=== PATIENT | male | born 1985 | race Hispanic/Latino ===

== ENCOUNTER 2017-07-09 20:16 | Emergency (ER) | payer SELFPAY ==
[~2017-07-09] VITALS: Ht 180.3 cm; Wt 65.8 kg
[2017-07-09 21:13] LABS: BASOPHILS # (AUTO) 0.1 10^3/uL (0.0-0.1); BASOPHILS % (AUTO) 1 % (0-10); EOSINOPHILS # (AUTO) 0.2 10^3/uL (0.0-0.3); EOSINOPHILS % (AUTO) 3 % (0-10); LYMPHOCYTES # (AUTO) 2.2 X 10^3 (1.0-4.0); LYMPHOCYTES % (AUTO) 26 % (12-44); MEAN CORPUSCULAR HEMOGLOBIN 31 PG (25-34); MEAN CORPUSCULAR HGB CONC 35 G/DL (32-36); MEAN CORPUSCULAR VOLUME 87 FL (80-99); MEAN PLATELET VOLUME 9.5 FL (7.4-10.4); MONOCYTES # (AUTO) 1.2 X 10^3 (0.0-1.0); MONOCYTES % (AUTO) 14 % (0-12); NEUTROPHILS # (AUTO) 5.1 X 10^3 (1.8-7.8); NEUTROPHILS % (AUTO) 58 % (42-75); PLATELET COUNT 248 10^3/uL (130-400); RED BLOOD COUNT 5.19 10^6/uL (4.35-5.85); RED CELL DISTRIBUTION WIDTH 12.5 % (10.0-14.5); WHITE BLOOD COUNT 8.8 10^3/uL (4.3-11.0)
[2017-07-09] MEDS ORDERED: KETOROLAC 30 MG/ML VIAL IVP ONE (21:15)
--- NOTE | 2017-07-09 21:29 | ED Abdominal Pain ---
General Chief Complaint: Abdominal/GI Problems Stated Complaint: ABD PAIN Nursing Triage Note: PT TO ED 5 W/ FAMILY FOR C/O ABD PAIN ET UNABLE TO URINATE. PT REPORTS PAIN TO UMBILICUS AND AROUND TO LT FLANK. NO OTHER C/O VOICED Sepsis Screen: No Definite Risk Source of Information: Patient Exam Limitations: No Limitations History of Present Illness Time Seen By Provider: 21:28 Initial Comments to ER with midline and left lower abdominal pain that began this morning. Sensation of needing to urinate but inability to do so. He's never had these symptoms before. No fevers or chills. Father has a history kidney stones. 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 Timing/Duration: 4-6 Hours Severity/Quality: Moderate Location: LLQ, Suprapubic Radiation: No Radiation Activities at Onset: None Allergies and Home Medications Allergies Coded Allergies: No Known Drug Allergies (Unverified , 07/09/17) Home Medications Ciprofloxacin HCl 500 Mg Tablet, 500 MG PO BID, #10 Prescribed by: YUKI PARKER on 07/09/172136 Hydrocodone/Acetaminophen 1 Each Tablet, 1 EACH PO Q4H PRN for PAIN-SEVERE, #30 Prescribed by: YUKI PARKER on 07/09/172136 Ibuprofen 800 Mg Tablet, 800 MG PO Q8H PRN for PAIN, #30 Prescribed by: YUKI PARKER on 07/09/172136 Tamsulosin HCl 0.4 Mg Cap, 0.4 MG PO DAILY, #14 Prescribed by: YUKI PARKER on 07/09/172136 Review of Systems Constitutional: see HPI EENTM: No Symptoms Reported Respiratory: No Symptoms Reported Cardiovascular: No Symptoms Reported Gastrointestinal: See HPI, Abdominal Pain, Denies Constipated, Denies Diarrhea , Denies Nausea Genitourinary: See HPI Musculoskeletal: no symptoms reported Skin: no symptoms reported Endocrine: No Symptoms Reported Past Rwphghr-Dyjtgo-Nudvlx Hx Patient Social History Alcohol Use: Denies Use Recreational Drug Use: No Smoking Status: Never a Smoker Recent Foreign Travel: No Contact w/Someone Who Travel: No Recent Infectious Disease Expo: No Recent Hopitalizations: No Physical Abuse: No Sexual Abuse: No Mistreated: No Fear: No Surgeries History of Surgeries: Yes (CHEST BX) Respiratory History of Respiratory Disorde: No Cardiovascular History of Cardiac Disorders: No Neurological History of Neurological Disord: No Genitourinary History of Genitourinary Disor: No Gastrointestinal History of Gastrointestinal Di: No Musculoskeletal History of Musculoskeletal Dis: No Endocrine History of Endocrine Disorders: No HEENT History of HEENT Disorders: No Cancer History of Cancer: No Psychosocial History of Psychiatric Problem: No Suicide Risk Score: 0 Integumentary History of Skin or Integumenta: No Blood Transfusions History of Blood Disorders: No Physical Exam Vital Signs VS - Last 72 Hours, by Label 07/09/17 20:47 Temp 98.7 Pulse 67 Resp 20 B/P (MAP) 130/95 Pulse Ox 99 O2 Delivery Room Air Capillary Refill : Less Than 3 Seconds General Appearance: WD/WN, no apparent distress HEENT: PERRL/EOMI, normal ENT inspection Neck: non-tender, full range of motion Respiratory: normal breath sounds, no respiratory distress, no accessory muscle use Gastrointestinal: normal bowel sounds, soft, tenderness (left-sided) Extremities: normal range of motion, non-tender Neurologic/Psychiatric: alert, normal mood/affect, oriented x 3 Skin: normal color, warm/dry Progress/Results/Core Measures Results/Orders Lab Results Laboratory Tests Test 07/09/17 20:59 07/09/17 21:31 Range/Units White Blood Count 8.8 4.3-11.0 10^3/uL Red Blood Count 5.19 4.35-5.85 10^6/uL Hemoglobin 15.9 13.3-17.7 G/DL Hematocrit 45 40-54 % Mean Corpuscular Volume 87 80-99 FL Mean Corpuscular Hemoglobin 31 25-34 PG Mean Corpuscular Hemoglobin Concent 35 32-36 G/DL Red Cell Distribution Width 12.5 10.0-14.5 % Platelet Count 248 130-400 10^3/uL Mean Platelet Volume 9.5 7.4-10.4 FL Neutrophils (%) (Auto) 58 42-75 % Lymphocytes (%) (Auto) 26 12-44 % Monocytes (%) (Auto) 14 H 0-12 % Eosinophils (%) (Auto) 3 0-10 % Basophils (%) (Auto) 1 0-10 % Neutrophils # (Auto) 5.1 1.8-7.8 X 10^3 Lymphocytes # (Auto) 2.2 1.0-4.0 X 10^3 Monocytes # (Auto) 1.2 H 0.0-1.0 X 10^3 Eosinophils # (Auto) 0.2 0.0-0.3 10^3/uL Basophils # (Auto) 0.1 0.0-0.1 10^3/uL Sodium Level 137 135-145 MMOL/L Potassium Level 4.0 3.6-5.0 MMOL/L Chloride Level 102 98-107 MMOL/L Carbon Dioxide Level 23 21-32 MMOL/L Anion Gap 12 5-14 MMOL/L Blood Urea Nitrogen 13 7-18 MG/DL Creatinine 1.26 0.60-1.30 MG/DL Estimat Glomerular Filtration Rate > 60 BUN/Creatinine Ratio 10 Glucose Level 117 H 70-105 MG/DL Calcium Level 9.8 8.5-10.1 MG/DL Total Bilirubin 0.6 0.1-1.0 MG/DL Aspartate Amino Transf (AST/SGOT) 110 H 5-34 U/L Alanine Aminotransferase (ALT/SGPT) 258 H 0-55 U/L Alkaline Phosphatase 96 40-136 U/L Total Protein 7.8 6.4-8.2 GM/DL Albumin 4.4 3.2-4.5 GM/DL Urine Color YELLOW Urine Clarity CLEAR Urine pH 7 5-9 Urine Specific [place] 1.015 L 1.016-1.022 Urine Protein 1+ H NEGATIVE Urine Glucose (UA) NEGATIVE NEGATIVE Urine Ketones NEGATIVE NEGATIVE Urine Nitrite NEGATIVE NEGATIVE Urine Bilirubin NEGATIVE NEGATIVE Urine Urobilinogen NORMAL NORMAL MG/DL Urine Leukocyte Esterase NEGATIVE NEGATIVE Urine RBC (Auto) 2+ H NEGATIVE Urine RBC 10-25 H /HPF Urine WBC NONE /HPF Urine Crystals NONE /LPF Urine Bacteria NONE /HPF Urine Casts NONE /LPF Urine Mucus NEGATIVE /LPF Urine Culture Indicated NO My Orders Orders - YUKI PARKER APRN Saline Lock/Iv-Start (07/09/17 21:07) Ct Abd/Pelvis Wo(Kidney Stone) (07/09/17 21:07) Ua Culture If Indicated (07/09/17 21:07) Cbc With Automated Diff (07/09/17 21:07) Comprehensive Metabolic Panel (07/09/17 21:07) Ketorolac Injection (Toradol Injection) (07/09/17 21:15) Rx-Hydrocodone/Apap 5-325 Mg (Rx-Vicodin (07/09/17 21:45) Medications Given in ED Current Medications Medications Dose Ordered Sig/Boo Route Start Time Stop Time Status Last Admin Dose Admin Ketorolac Tromethamine 30 mg ONCE ONCE IVP 07/09/17 21:15 07/09/17 21:16 DC 07/09/17 21:20 30 MG Vital Signs/I&O Vital Sign - Last 12Hours 07/09/17 20:47 Temp 98.7 Pulse 67 Resp 20 B/P (MAP) 130/95 Pulse Ox 99 O2 Delivery Room Air Blood Pressure Mean: 107 Diagnostic Imaging Diagonstic Imaging: CT Comments NAME: FERNANDO MILLER [facility] REC#: [id number] PT STATUS: REG ER : 1985 PHYSICIAN: YUKI PARKER APRN ADMIT DATE: 07/09/17/ER Draft Date of Exam:07/09/17 CT ABD/PELVIS WO(KIDNEY STONE) PROCEDURE: CT urinary tract, rule out kidney stone. TECHNIQUE: Multiple contiguous axial images were obtained through the abdomen and pelvis without the use of intravenous contrast. INDICATION: Unable to urinate, pain to the umbilicus and around to the left flank. CORRELATION STUDY: None. FINDINGS: LOWER THORAX: Calcified granuloma, anteriorly, in the right mid to lower lung. LIVER: 2.4 x 1.8 cm low-density mass in the left lobe of the liver most compatible with a cyst. Unenhanced liver otherwise unremarkable. GALLBLADDER: Slightly contracted, otherwise unremarkable. SPLEEN: Unremarkable. PANCREAS: Unremarkable. ADRENAL GLANDS: Unremarkable. KIDNEYS: Right kidney and collecting system unremarkable. Left kidney is slightly engorged. There is mild/moderate left-sided obstructive uropathy owing to a 5 x 4 x 4 mm stone in the distal left ureter just proximal to the ureterovesical junction. ABDOMINAL AORTA: Unremarkable, nonaneurysmal. GASTROINTESTINAL TRACT: Stomach is distended with retained gastric contents. Small bowel appears unremarkable. Mild/moderate severity fecal retention. No obstruction or inflammation. Normal appendix in the right lower quadrant. No abdominal ascites or free air. A few mildly prominent mesenteric lymph nodes. URINARY BLADDER: Relatively decompressed. REPRODUCTIVE: Prostate gland very mildly prominent. OSSEOUS STRUCTURES: No acute abnormality. IMPRESSION: Mild to moderate left-sided obstructive uropathy owing to an approximately 5 mm stone in the distal left ureter. Dictated on workstation # [id number] Dict: 07/09/172140 Trans: 07/09/172149 [facility] [id number] Interpreted by: RAE NAQVI DO Electronically signed by: Departure Impression Impression: Primary Impression: Left ureteral stone Disposition: 01 HOME, SELF-CARE Condition: Stable Departure-Patient Inst. Decision time for Depature: 21:35 Referrals: NO,LOCAL PHYSICIAN (PCP) Primary Care Physician GISSELLE MANCIA MD Patient Instructions: Kidney Stones in Adults Add. Discharge Instructions: 1. Return to ER for any concerns 2. Medication as directed 3. See your doctor later this week All discharge instructions reviewed with patient and/or family. Voiced understanding. Scripts Ibuprofen (Ibuprofen) 800 Mg Tablet 800 MG PO Q8H Y for PAIN, #30 TAB Prov: YUKI PARKER APRN 07/09/17 Hydrocodone/Acetaminophen ([place] 5-325 Tablet) 1 Each Tablet 1 EACH PO Q4H Y for PAIN-SEVERE, #30 TAB Prov: YUKI PARKER APRN 07/09/17 Ciprofloxacin HCl (Cipro) 500 Mg Tablet 500 MG PO BID, #10 TAB Prov: YUKI PARKER APRN 07/09/17 Tamsulosin HCl (Flomax) 0.4 Mg Cap 0.4 MG PO DAILY, #14 CAP Prov: YUKI PARKER APRN 07/09/17 Work/School Note: Work Release Form Date Seen in the Emergency Department: Jul 09, 2017 Return to Work: Jul 11, 2017 YUKI PARKER APRN Jul 09, 2017 21:29
[2017-07-09 21:35] LABS: ALANINE AMINOTRANSFERASE 258 U/L (0-55); ALBUMIN 4.4 GM/DL (3.2-4.5); ANION GAP 12 MMOL/L (5-14); ASPARTATE AMINO TRANSFERASE 110 U/L (5-34); BILIRUBIN,TOTAL 0.6 MG/DL (0.1-1.0); BLOOD UREA NITROGEN 13 MG/DL (7-18); BUN/CREATININE RATIO 10; CALCIUM 9.8 MG/DL (8.5-10.1); CARBON DIOXIDE 23 MMOL/L (21-32); CHLORIDE 102 MMOL/L (98-107); CREATININE SERUM 1.26 MG/DL (0.60-1.30); GFR ESTIMATED > 60; GLUCOSE 117 MG/DL (70-105); SODIUM 137 MMOL/L (135-145); TOTAL PROTEIN 7.8 GM/DL (6.4-8.2)
[2017-07-09 21:37] LABS: BILIRUBIN,URINE NEGATIVE (NEGATIVE); KETONES,URINE NEGATIVE (NEGATIVE); LEUKOCYTE ESTERASE ,URINE NEGATIVE (NEGATIVE); NITRITE,URINE NEGATIVE (NEGATIVE); PH,URINE 7 (5-9); PROTEIN,URINE 1+ (NEGATIVE); UROBILINOGEN,URINE NORMAL (NORMAL)
[2017-07-09] MEDS ORDERED: TAMS0.4C98 PO (21:37)
[2017-07-09] MEDS ORDERED: IBUP-1780 PO (21:37)
[2017-07-09] MEDS ORDERED: HYDR-757 PO (21:37)
[2017-07-09] MEDS ORDERED: CIPR-225 PO (21:37)
[2017-07-09] MEDS ORDERED: RX-HYDROCODONE/APAP 5/325 MG #4 TAB PK PO PRN (21:45)
--- NOTE | 2017-07-09 21:51 | Diagnostic Imaging Report ---
PROCEDURE: CT urinary tract, rule out kidney stone. TECHNIQUE: Multiple contiguous axial images were obtained through the abdomen and pelvis without the use of intravenous contrast. INDICATION: Unable to urinate, pain to the umbilicus and around to the left flank. CORRELATION STUDY: None. FINDINGS: LOWER THORAX: Calcified granuloma, anteriorly, in the right mid to lower lung. LIVER: 2.4 x 1.8 cm low-density mass in the left lobe of the liver most compatible with a cyst. Unenhanced liver otherwise unremarkable. GALLBLADDER: Slightly contracted, otherwise unremarkable. SPLEEN: Unremarkable. PANCREAS: Unremarkable. ADRENAL GLANDS: Unremarkable. KIDNEYS: Right kidney and collecting system unremarkable. Left kidney is slightly engorged. There is mild/moderate left-sided obstructive uropathy owing to a 5 x 4 x 4 mm stone in the distal left ureter just proximal to the ureterovesical junction. ABDOMINAL AORTA: Unremarkable, nonaneurysmal. GASTROINTESTINAL TRACT: Stomach is distended with retained gastric contents. Small bowel appears unremarkable. Mild/moderate severity fecal retention. No obstruction or inflammation. Normal appendix in the right lower quadrant. No abdominal ascites or free air. A few mildly prominent mesenteric lymph nodes. URINARY BLADDER: Relatively decompressed. REPRODUCTIVE: Prostate gland very mildly prominent. OSSEOUS STRUCTURES: No acute abnormality. IMPRESSION: Mild to moderate left-sided obstructive uropathy owing to an approximately 5 mm stone in the distal left ureter. Dictated by: Dictated on workstation # [id number]
[2017-07-09] MEDS ORDERED: fentaNYL INJECTION 100 MCG/2 ML AMP IVP ONE (22:15)
[2017-07-09 22:53] VITALS: BP 137/90
== END 2017-07-09 22:53 | disposition home or self-care (01) ==
LOC: ER 20:19
DX: N20.1 Calculus of ureter (principal)
CPT/HCPCS: 36415; 74176; 80053; 81000; 85025

== ENCOUNTER 2018-08-17 13:04 | Emergency (ER) | payer SELFPAY ==
[~2018-08-17] VITALS: Ht 182.9 cm; Wt 72.6 kg
[~2018-08-17 13:04] MED LIST: CIPR-225 PO; HYDR-4226 PO; IBUP-1780 PO; TAMS0.4C98 PO
[2018-08-17] MEDS ORDERED: KETOROLAC 30 MG/ML VIAL ONE (13:16)
[2018-08-17 13:29] LABS: BASOPHILS % (AUTO) 0 % (0-10); EOSINOPHILS # (AUTO) 0.1 10^3/uL (0.0-0.3); EOSINOPHILS % (AUTO) 2 % (0-10); HEMATOCRIT 45 % (40-54); HEMOGLOBIN 16.4 G/DL (13.3-17.7); LYMPHOCYTES # (AUTO) 1.8 X 10^3 (1.0-4.0); LYMPHOCYTES % (AUTO) 28 % (12-44); MEAN CORPUSCULAR HEMOGLOBIN 31 PG (25-34); MEAN CORPUSCULAR HGB CONC 36 G/DL (32-36); MEAN CORPUSCULAR VOLUME 87 FL (80-99); MEAN PLATELET VOLUME 9.5 FL (7.4-10.4); MONOCYTES # (AUTO) 1.1 X 10^3 (0.0-1.0); MONOCYTES % (AUTO) 18 % (0-12); NEUTROPHILS # (AUTO) 3.3 X 10^3 (1.8-7.8); NEUTROPHILS % (AUTO) 53 % (42-75); PLATELET COUNT 218 10^3/uL (130-400); RED BLOOD COUNT 5.22 10^6/uL (4.35-5.85); WHITE BLOOD COUNT 6.4 10^3/uL (4.3-11.0)
[2018-08-17] MEDS ORDERED: NS IV 1000 ML 1,000 ML IV SCH (13:30)
[2018-08-17] MEDS ORDERED: KETOROLAC 30 MG/ML VIAL IVP ONE (13:30)
--- NOTE | 2018-08-17 13:31 | ED Back Pain ---
General Chief Complaint: Back Problems Stated Complaint: N/V/D;BACK PAIN;FEET PAIN Source of Information: Patient Exam Limitations: No Limitations History of Present Illness Date Seen by Provider: Aug 17, 2018 Time Seen by Provider: 13:29 Initial Comments To ER with right lower quadrant abdominal pain, right flank pain, urinary frequency and burning for 3 days. Also has pain to the plantar surface of both feet for 3 days. Location: Other (right flank) Timing/Duration: 1-2 Days Severity: Moderate Pain/Injury Location: Abdomen, Back Allergies and Home Medications Allergies Coded Allergies: No Known Drug Allergies (Unverified , 07/09/17) Patient Home Medication List Home Medication List Reviewed: Yes Review of Systems Constitutional: see HPI EENTM: see HPI Respiratory: no symptoms reported Cardiovascular: no symptoms reported Genitourinary: see HPI, frequency Musculoskeletal: no symptoms reported Skin: no symptoms reported Psychiatric/Neurological: No Symptoms Reported Past Xcaxxgg-Mxhpmk-Sclffm Hx Patient Social History Recent Hopitalizations: No Past Medical History Surgeries: Yes (CHEST BX) Respiratory: No Cardiac: No Neurological: No Genitourinary: No Gastrointestinal: No Musculoskeletal: No Endocrine: No HEENT: No Cancer: No Psychosocial: No Integumentary: No Blood Disorders: No Physical Exam Vital Signs Vital Signs - First Documented 08/17/18 13:15 Temp 97.1 Pulse 64 Resp 18 B/P (MAP) 105/75 (85) Pulse Ox 99 Capillary Refill : Height, Weight, BMI Height: 5'11.00" Weight: 145lbs. oz. 65.520031eg; BMI Method:Stated General Appearance: No Apparent Distress, WD/WN HEENT: PERRL/EOMI Neck: Full Range of Motion, Normal Inspection Cardiovascular: Regular Rate, Rhythm, Normal Peripheral Pulses Respiratory: Normal Breath Sounds, No Accessory Muscle Use, No Respiratory Distress Gastrointestinal: Normal Bowel Sounds, Soft, Tenderness (rlq) Extremity: Other (The plantar surface of his feet where he complains of pain diffusely is nontender to palpation, only painful with walking. There is no erythema ecchymosis swelling rash or other lesion to either foot.) Neurologic/Psychiatric: Alert, Oriented x3 Skin: Normal Color, Warm/Dry Progress/Results/Core Measures Results/Orders Lab Results Laboratory Tests Test 08/17/18 13:15 Range/Units White Blood Count 6.4 4.3-11.0 10^3/uL Red Blood Count 5.22 4.35-5.85 10^6/uL Hemoglobin 16.4 13.3-17.7 G/DL Hematocrit 45 40-54 % Mean Corpuscular Volume 87 80-99 FL Mean Corpuscular Hemoglobin 31 25-34 PG Mean Corpuscular Hemoglobin Concent 36 32-36 G/DL Red Cell Distribution Width 13.0 10.0-14.5 % Platelet Count 218 130-400 10^3/uL Mean Platelet Volume 9.5 7.4-10.4 FL Neutrophils (%) (Auto) 53 42-75 % Lymphocytes (%) (Auto) 28 12-44 % Monocytes (%) (Auto) 18 H 0-12 % Eosinophils (%) (Auto) 2 0-10 % Basophils (%) (Auto) 0 0-10 % Neutrophils # (Auto) 3.3 1.8-7.8 X 10^3 Lymphocytes # (Auto) 1.8 1.0-4.0 X 10^3 Monocytes # (Auto) 1.1 H 0.0-1.0 X 10^3 Eosinophils # (Auto) 0.1 0.0-0.3 10^3/uL Basophils # (Auto) 0.0 0.0-0.1 10^3/uL Urine Color YELLOW Urine Clarity CLEAR Urine pH 6 5-9 Urine Specific [place] 1.020 1.016-1.022 Urine Protein 1+ H NEGATIVE Urine Glucose (UA) NEGATIVE NEGATIVE Urine Ketones NEGATIVE NEGATIVE Urine Nitrite NEGATIVE NEGATIVE Urine Bilirubin NEGATIVE NEGATIVE Urine Urobilinogen NORMAL NORMAL MG/DL Urine Leukocyte Esterase NEGATIVE NEGATIVE Urine RBC (Auto) 1+ H NEGATIVE Urine RBC NONE /HPF Urine WBC NONE /HPF Urine Squamous Epithelial Cells RARE /HPF Urine Crystals NONE /LPF Urine Bacteria NEGATIVE /HPF Urine Casts NONE /LPF Urine Mucus SMALL H /LPF Urine Culture Indicated NO Sodium Level 138 135-145 MMOL/L Potassium Level 4.3 3.6-5.0 MMOL/L Chloride Level 107 98-107 MMOL/L Carbon Dioxide Level 19 L 21-32 MMOL/L Anion Gap 12 5-14 MMOL/L Blood Urea Nitrogen 14 7-18 MG/DL Creatinine 1.05 0.60-1.30 MG/DL Estimat Glomerular Filtration Rate > 60 BUN/Creatinine Ratio 13 Glucose Level 90 70-105 MG/DL Calcium Level 9.3 8.5-10.1 MG/DL Corrected Calcium 9.1 8.5-10.1 MG/DL Total Bilirubin 0.5 0.1-1.0 MG/DL Aspartate Amino Transf (AST/SGOT) 37 H 5-34 U/L Alanine Aminotransferase (ALT/SGPT) 33 0-55 U/L Alkaline Phosphatase 73 40-136 U/L Total Protein 7.3 6.4-8.2 GM/DL Albumin 4.3 3.2-4.5 GM/DL My Orders Orders - YUKI PARKER APRN Ketorolac Injection (Toradol Injection) (08/17/18 13:16) Cbc With Automated Diff (08/17/18 13:24) Comprehensive Metabolic Panel (08/17/18 13:24) Iv [place]ock-Insert (Order) (08/17/18 13:24) Ketorolac Injection (Toradol Injection) (08/17/18 13:30) Ns Iv 1000 Ml (Sodium Chloride 0.9%) (08/17/18 13:30) Ct Abd/Pelvis Wo(Kidney Stone) (08/17/18 13:24) Ua Culture If Indicated (08/17/18 13:35) Medications Given in ED Current Medications Medications Dose Ordered Sig/Boo Route Start Time Stop Time Status Last Admin Dose Admin Ketorolac Tromethamine 30 mg ONCE ONCE IVP 08/17/18 13:30 08/17/18 13:31 DC 08/17/18 13:20 30 MG Vital Signs/I&O 08/17/18 13:15 Temp 97.1 Pulse 64 Resp 18 B/P (MAP) 105/75 (85) Pulse Ox 99 Diagnostic Imaging Diagonstic Imaging: CT Comments NAME: FERNANDO MILLER [facility] REC#: [id number] PT STATUS: REG ER : 1985 PHYSICIAN: YUKI PARKER APRN ADMIT DATE: 08/17/18/ER Draft Date of Exam:08/17/18 CT ABD/PELVIS WO(KIDNEY STONE) PROCEDURE: CT urinary tract, rule out kidney stone. TECHNIQUE: Multiple contiguous axial images were obtained through the abdomen and pelvis without the use of intravenous contrast. INDICATION: Right flank pain The previous CT abdomen/pelvis exam of 07/09/2017 noted obstruction of the left collecting system due to a 5 MM calculus in the distal left ureter. On this exam there may be a few faint calcific densities within each kidney. There is no evidence for a calculus within either ureter however and the kidneys do not appear to be obstructed. The urinary bladder is grossly unremarkable There is no pelvic mass or free fluid collection evident. The prostate gland is not enlarged. There is diverticulosis of the sigmoid and descending colon but there is no sign of acute diverticulitis. The appendix is partially filled with gas and not abnormally dilated. There is a benign-appearing roughly 2 CM cyst in the left lobe of liver. This is unchanged in appearance when compared to the prior exam. The liver is otherwise stable. The spleen, pancreas, adrenals, gallbladder, aorta and inferior vena cava are unremarkable for an acute abnormality. The stomach is partially filled with particulate matter and consequently difficult to assess. The lung bases are clear. The bone windows shows no evidence for a fracture or for a destructive lesion. IMPRESSION: 1. There may be a few faint calculi within the kidneys. However there is no evidence for obstruction of either collecting system by a calculus. 2. There is no acute abnormality of the abdomen or pelvis otherwise. Dictated on workstation # [id number] Dict: 08/17/18 1356 Trans: 08/17/18 1423 [facility] [id number] Interpreted by: SHREITA SHERIFF MD Electronically signed by: Departure Impression Primary Impression: Right flank pain Disposition: 01 HOME, SELF-CARE Condition: Stable Departure-Patient Inst. Decision time for Depature: 14:42 Referrals: NO,LOCAL PHYSICIAN (PCP/Family) Primary Care Physician Patient Instructions: Flank Pain Add. Discharge Instructions: 1. Drink plenty of fluids 2. Tylenol and Motrin for pain control 3. Return to ER for any concerns All discharge instructions reviewed with patient and/or family. Voiced understanding. YUKI PARKER ANIMAL FEEDER Aug 17, 2018 13:31
[2018-08-17 13:42] LABS: ALANINE AMINOTRANSFERASE 33 U/L (0-55); ALBUMIN 4.3 GM/DL (3.2-4.5); ALKALINE PHOSPHATASE 73 U/L (40-136); BILIRUBIN,TOTAL 0.5 MG/DL (0.1-1.0); BUN/CREATININE RATIO 13; CALCIUM 9.3 MG/DL (8.5-10.1); CARBON DIOXIDE 19 MMOL/L (21-32); CHLORIDE 107 MMOL/L (98-107); CREATININE SERUM 1.05 MG/DL (0.60-1.30); GFR ESTIMATED > 60; GLUCOSE 90 MG/DL (70-105); POTASSIUM 4.3 MMOL/L (3.6-5.0); SODIUM 138 MMOL/L (135-145); TOTAL PROTEIN 7.3 GM/DL (6.4-8.2)
[2018-08-17 13:46] LABS: BILIRUBIN,URINE NEGATIVE (NEGATIVE); CLARITY,URINE CLEAR; COLOR,URINE YELLOW; GLUCOSE, URINE (UA) NEGATIVE (NEGATIVE); KETONES,URINE NEGATIVE (NEGATIVE); LEUKOCYTE ESTERASE ,URINE NEGATIVE (NEGATIVE); NITRITE,URINE NEGATIVE (NEGATIVE); PH,URINE 6 (5-9); PROTEIN,URINE 1+ (NEGATIVE); UROBILINOGEN,URINE NORMAL (NORMAL)
[2018-08-17 13:59] LABS: BACTERIA,URINE NEGATIVE /HPF; SQUAMOUS EPITHELIAL CELL,UR RARE /HPF
--- NOTE | 2018-08-17 14:23 | Diagnostic Imaging Report ---
PROCEDURE: CT urinary tract, rule out kidney stone. TECHNIQUE: Multiple contiguous axial images were obtained through the abdomen and pelvis without the use of intravenous contrast. INDICATION: Right flank pain The previous CT abdomen/pelvis exam of 07/09/2017 noted obstruction of the left collecting system due to a 5 MM calculus in the distal left ureter. On this exam there may be a few faint calcific densities within each kidney. There is no evidence for a calculus within either ureter however and the kidneys do not appear to be obstructed. The urinary bladder is grossly unremarkable There is no pelvic mass or free fluid collection evident. The prostate gland is not enlarged. There is diverticulosis of the sigmoid and descending colon but there is no sign of acute diverticulitis. The appendix is partially filled with gas and not abnormally dilated. There is a benign-appearing roughly 2 CM cyst in the left lobe of liver. This is unchanged in appearance when compared to the prior exam. The liver is otherwise stable. The spleen, pancreas, adrenals, gallbladder, aorta and inferior vena cava are unremarkable for an acute abnormality. The stomach is partially filled with particulate matter and consequently difficult to assess. The lung bases are clear. The bone windows shows no evidence for a fracture or for a destructive lesion. IMPRESSION: 1. There may be a few faint calculi within the kidneys. However there is no evidence for obstruction of either collecting system by a calculus. 2. There is no acute abnormality of the abdomen or pelvis otherwise. Dictated by: Dictated on workstation # [id number]
[2018-08-17 15:09] VITALS: BP 105/75
== END 2018-08-17 15:09 | disposition home or self-care (01) ==
LOC: EDUNIT# 13:04 → ER 13:05
DX: R10.31 Right lower quadrant pain (principal)
CPT/HCPCS: 36415; 74176; 80053; 81000; 85025

== ENCOUNTER 2020-05-02 12:58 | Emergency (ER) | payer SELFPAY ==
[~2020-05-02] VITALS: Ht 175.2 cm; Wt 77.1 kg
[~2020-05-02 12:58] MED LIST changes: -TAMS0.4C98 PO; +TMSL.4C PO
--- NOTE | 2020-05-02 14:30 | ED Trauma-Multisystem ---
General Chief Complaint: Trauma-Non Activation Stated Complaint: FALL BACK/NECK/HEAD PAIN Nursing Triage Note: Pt reports fall from tree on Thursday. Pt believes 6-12 feet. Pt reports hitting back of head and LOC for approximately 3 mins. Pt has small abrasion to back of head. Pt c/o head, neck and back pain. Source of Information: Patient Exam Limitations: No Limitations History of Present Illness Date Seen by Provider: May 02, 2020 Time Seen by Provider: 14:00 Initial Comments 34-year-old male who presents to the emergency room with complaints of head, neck, back pain and loss of consciousness for approximately 3 minutes after falling 6-12 feet from a tree 3 days ago. He reports that he was trimming trees when he slipped and fell. He is alert and oriented on arrival to the emergency room but reports that his pain is not improving. He does have a small abrasion to the posterior aspect of the scalp approximately the size of quarter. He denies any dizziness, lightheadedness, nausea or vomiting. Location Injury Occurred: home Allergies and Home Medications Allergies Coded Allergies: No Known Drug Allergies (Unverified , 07/09/17) Patient Home Medication List Home Medication List Reviewed: Yes Review of Systems Review of Systems Constitutional: see HPI; No chills, No fever Musculoskeletal: see HPI, back pain, neck pain Skin: see HPI, other (abrasion to scalp) Psychiatric/Neurological: See HPI, Headache All Other Systems Reviewed Negative Unless Noted: Yes Past Vlsvlev-Sjndah-Pprfgs Hx Past Med/Social Hx: Reviewed Nursing Past Med/Soc Hx Patient Social History Alcohol Use: Denies Use Recreational Drug Use: No 2nd Hand Smoke Exposure: No Recent Foreign Travel: No Contact w/Someone Who Travel: No Recent Infectious Disease Expo: No Recent Hopitalizations: No Past Medical History Surgeries: Yes (CHEST BX) Respiratory: No Cardiac: No Neurological: No Genitourinary: No Gastrointestinal: No Musculoskeletal: No Endocrine: No HEENT: No Cancer: No Psychosocial: No Integumentary: No Blood Disorders: No Family Medical History Reviewed Nursing Family Hx Physical Exam Vital Signs Vital Signs - First Documented 05/02/20 13:50 Temp 36.7 Pulse 57 Resp 20 B/P (MAP) 106/81 (89) Pulse Ox 98 O2 Delivery Room Air Height, Weight, BMI Height: 6'0" Weight: 160lbs. oz. [id number]; 25.00 BMI Method:Stated General Appearance: No Apparent Distress, WD/WN Head: Other (abrasion to scalp) Eyes: Bilateral Eye Normal Inspection, Bilateral Eye PERRL, Bilateral Eye EOMI Ears, Nose, Throat: Hearing Grossly Normal, No Evidence of ENT Injury, No Den mildred Injury Neck: Full Range of Motion, Normal Inspection, Non Tender, Supple Cardiovascular: Regular Rate, Rhythm, No Edema, No Gallop, No JVD, No Murmur, Normal Peripheral Pulses Respiratory: Chest Non Tender, Lungs Clear, Normal Breath Sounds, No Accessory Muscle Use, No Respiratory Distress Back: Normal Inspection, Vertebral Tenderness (of lumbar and thoracic spine) Extremity: Normal Capillary Refill Neurologic/Psychiatric: Alert, Oriented x3, Normal Mood/Affect Skin: Normal Color, Warm/Dry Jerrod Coma Score Best Eye Response (Jerrod): (4) Open Spontaneously Best Verbal Response (Jerrod): (5) Oriented Best Motor Response (Bill[place]): (6) Obeys Commands Jerrod Total: 15 Progress/Results/Core Measures Results/Orders My Orders Orders - FREYA JEFFERS Ct Head/Cervical Spine Wo (05/02/20 14:08) Ct Thoracic/Lumbar Spine Wo (05/02/20 14:08) Vital Signs/I&O 05/02/20 13:50 Temp 36.7 Pulse 57 Resp 20 B/P (MAP) 106/81 (89) Pulse Ox 98 O2 Delivery Room Air Blood Pressure Mean: 89 Progress Progress Note : Time: 15:51 Progress Note I have seen and evaluated the patient. I've informed him of his imaging studies. He agrees with plan of care, plans for discharge, return precautions were given. Departure Impression Primary Impression: Minor head injury with loss of consciousness Additional Impressions: Contusion of lower back Contusion of mid back Disposition: 01 HOME, SELF-CARE Condition: Stable/Unchanged Departure-Patient Inst. Decision time for Depature: 15:50 Referrals: NO,LOCAL PHYSICIAN (PCP/Family) Primary Care Physician Patient Instructions: Minor Head Injury (DC), Concussion in Adults, Contusion (DC) Add. Discharge Instructions: You may use ice and heat to the sore areas at 20 minute intervals. You may use ibuprofen and Tylenol as needed for pain relief. Follow-up with your primary care provider within 1 week for recheck. Return back to the emergency room for any change in level of consciousness, worsening symptoms, or any other concerns as needed. All discharge instructions reviewed with patient and/or family. Voiced understanding. FREYA JEFFERS May 02, 2020 14:30
--- NOTE | 2020-05-02 14:46 | Diagnostic Imaging Report ---
PROCEDURE: CT head and CT cervical spine without contrast. TECHNIQUE: Multiple contiguous axial images were obtained through the brain and cervical spine without the use of intravenous contrast. Sagittal and coronal reformations through the cervical spine were then performed. Auto Exposure Controls were utilized during the CT exam to meet ALARA standards for radiation dose reduction. INDICATION: Fall with head and neck pain. COMPARISON: No prior studies are available for comparison. CT Head: FINDINGS: Ventricles and sulci are within normal limits. No sulcal effacement or midline shift is identified. No acute intra-axial or extra-axial hemorrhage is detected. Cisterns are patent. Visualized paranasal sinuses are clear. IMPRESSION: No acute intracranial process is detected. CT Cervical Spine: FINDINGS: Alignment is normal. No fractures are identified. The prevertebral tissues are within normal limits. The odontoid is intact. IMPRESSION: No acute bony abnormality is detected. Dictated by: Dictated on workstation # [id number]
--- NOTE | 2020-05-02 15:40 | Diagnostic Imaging Report ---
Clinical indications: Patient fell out of a tree. Patient has mid lumbar pain. Exam: Axial CT scan of the thoracic and lumbar spine performed without IV contrast. Sagittal and coronal reformations were performed. Bone and soft tissue windows were created. Auto Exposure Controls were utilized during the CT exam to meet ALARA standards for radiation dose reduction. Comparison: None. Findings: There is no acute thoracic or lumbar fracture or dislocation. Thoracic and lumbar spine has normal alignment. The visualized extrathoracic, and lumbar soft tissue structures are unremarkable. Impression: There is no acute thoracic spine and lumbar spine fracture or dislocation. Dictated by: Dictated on workstation # [id number]
[2020-05-02 16:11] VITALS: BP 109/82
== END 2020-05-02 16:05 | disposition home or self-care (01) ==
LOC: EDUNIT# 12:58 → ER 13:05
DX: S30.0XXA Contusion of lower back and pelvis, initial encounter (principal); S06.899A Other specified intracranial injury with loss of consciousness of unspecified duration, initial encounter; S00.01XA Abrasion of scalp, initial encounter; R40.2410 Glasgow coma scale score 13-15, unspecified time; W14.XXXA Fall from tree, initial encounter; Y93.H2 Activity, gardening and landscaping
CPT/HCPCS: 70450; 72125; 72128; 72131